=== PATIENT | female | born 1960 | race African-American/Black ===

== ENCOUNTER 2022-06-28 08:58 | Emergency (ER) | payer BC ==
[2022-06-28] MEDS ORDERED: Ketorolac Tromethamine 30 MG/ML VIAL ONE (10:08)
== END 2022-06-28 10:17 | disposition home or self-care (01) ==
LOC: ERS 08:58
DX: K02.9 Dental caries, unspecified (principal); L65.9 Nonscarring hair loss, unspecified
CPT/HCPCS: 96372; 99282; J1885

== ENCOUNTER 2024-05-24 12:42 | Emergency (ER) | payer BC ==
[2024-05-24] MEDS ORDERED: Ketorolac Tromethamine 30 MG (1 mL) VIAL ONE (14:00)
== END 2024-05-24 14:20 | disposition home or self-care (01) ==
LOC: ERS 12:42
DX: K08.89 Other specified disorders of teeth and supporting structures (principal)
CPT/HCPCS: 96372; 99282; J1885